=== PATIENT | male | born 1955 | race Caucasian/White ===

== ENCOUNTER → 2023-08-05 | Day surgery (SDC) | payer MEDICARE ==
[~2023-08-05] MED LIST: ASPIRIN81 MG PO; COREG CR10 MG PO; CRESTOR10 MG PO; ENTRESTO 97 MG1 EACH PO; EPINEPHRINE HCL 1:1000 1ML 1 MG/ML AMP ONE; HYDRALAZINE HCL 20 MG/ML VIAL IV ONE; HYDRALAZINE HCL 20 MG/ML VIAL ONE; LACTATED RINGER'S 1,000 ML ONE; LIDOCAINE 1% W/EPINEPHRINE 20 ML VIAL ONE; NEXIUM20 MG PO; ZETIA10 MG PO
[2023-08-05 09:18] VITALS: TEMP 97.4
[2023-08-05 10:40] VITALS: BP 146/91; PULSE 78; RESP 16; O2SAT 98
== END | disposition home or self-care (01) ==
LOC: OR 05:34
PROVIDERS: ATTEND Otolaryngology Otolaryngology/Facial Plastic Surgery
DX: J32.3 Chronic sphenoidal sinusitis (principal); J32.0 Chronic maxillary sinusitis; J32.1 Chronic frontal sinusitis; J33.8 Other polyp of sinus; J34.89 Other specified disorders of nose and nasal sinuses; I25.10 Atherosclerotic heart disease of native coronary artery without angina pectoris; I10 Essential (primary) hypertension; E78.5 Hyperlipidemia, unspecified; Z95.5 Presence of coronary angioplasty implant and graft; T82.9XXA Unspecified complication of cardiac and vascular prosthetic device, implant and graft, initial encounter; Z79.82 Long term (current) use of aspirin; Z79.899 Other long term (current) drug therapy; Z87.891 Personal history of nicotine dependence
CPT/HCPCS: 30520; 31259; 31267; 71046; 88305; 93005; J0171; J0360; J7121